=== PATIENT | female | born 2000 | race African-American/Black ===

== ENCOUNTER 2022-03-26 23:44 | Emergency (ER) | payer MEDICAID, OTHER ==
[~2022-03-26] VITALS: Ht 172.7 cm; Wt 78.0 kg
[2022-03-27] MEDS ORDERED: KETOROLAC 30MG/ML VIAL IV ONE ×2 (00:45→07:00)
[2022-03-27] MEDS ORDERED: LIDOCAINE HCL/PF 1% 10 MG/ML 5ML VIAL INFIL ONE (00:45)
[2022-03-27] MEDS ORDERED: CEFTRIAXONE SODIUM 500 MG/VIAL IM ONE (00:45)
[2022-03-27 01:21] LABS: HCG SCREEN NEGATIVE
[2022-03-27 01:29] LABS: CLARITY URINE CLOUDY (CLEAR); COLOR URINE YELLOW (YELLOW); KETONES URINE 1+ (NEGATIVE); LEUKOCYTE ESTERASE URINE 1+ (NEGATIVE); NITRITE URINE NEGATIVE (NEGATIVE); OCCULT BLOOD URINE NEGATIVE (NEGATIVE); PH URINE 5.5 (4.5-8.0); PROTEIN URINE TRACE (NEGATIVE); SPECIFIC GRAVITY URINE 1.028 (1.005-1.030)
[2022-03-27] MEDS ORDERED: DOXY100C5 MT (08:00)
[2022-03-27] MEDS ORDERED: NAPR500T7 MT (08:00)
[2022-03-27 13:33] VITALS: BP 116/74
[2022-03-29 04:10] LABS: NEISSERIA GONORRHOEAE NAA Negative (Negative)
== END 2022-03-27 13:51 | disposition home or self-care (01) ==
LOC: ER 23:44
DX: S50.12XA Contusion of left forearm, initial encounter (principal); S80.11XA Contusion of right lower leg, initial encounter; Z88.6 Allergy status to analgesic agent; Z88.0 Allergy status to penicillin; Y08.89XA Assault by other specified means, initial encounter; Y07.03 Male partner, perpetrator of maltreatment and neglect; Y93.89 Activity, other specified; Y92.488 Other paved roadways as the place of occurrence of the external cause
CPT/HCPCS: 73060; 73090; 73590; 81003; 84703; 86592; 87491; 87591; 96372; 96374; 96376; 99284; J0696; J1885; J3490

== ENCOUNTER 2023-06-09 | Emergency (ER) | payer OTHER ==
[~2023-06-09] VITALS: Ht 162.6 cm; Wt 79.0 kg
[~2023-06-09] MED LIST: DOXY100C5 MT; NAPR500T7 MT
[2023-06-09 01:48] VITALS: BP 116/57; PULSE 65; RESP 14; TEMP 98.4; O2SAT 99
== END 2023-06-09 05:04 | disposition left against medical advice (07) ==
LOC: ER
DX: M54.50 Low back pain, unspecified (principal); Z53.21 Procedure and treatment not carried out due to patient leaving prior to being seen by health care provider
CPT/HCPCS: 99281